=== PATIENT | male | born 1935 | race African-American/Black ===

== ENCOUNTER 2019-08-19 19:08 | Emergency (ER) | payer MEDICARE ==
[~2019-08-19] VITALS: Ht 175.3 cm; Wt 63.0 kg
--- NOTE | 2019-08-19 19:17 | Emergency Department Note ---
History of Present Illnes History of Present Illness Chief Complaint: abdominal pain History of Present Illness This is a 84 year old male, with a history of hypertension, lipidemia, remote prostate cancer, pacemaker placement who is brought in by his daughter for evaluation of epigastric pain that is intermittent past month patient states that the pain is symptoms of burning pain that comes and goes and he is unclear if he makes the pain better or worse. He has been taking Pepto dismal daily for the last few days, to see if that would help this pain. He has no known history of acid reflux. On the Pepto-Bismol did not make any difference in his symptoms. He denies any nausea, vomiting, or diarrhea. Suspect bowel movement was today, which she describes as normal. Patient denies any dysuria, frequency, urgency, fever, upper respiratory symptoms, cough, or shortness of breath. He has no history of peptic ulcer disease. 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 Onset (how long ago): week(s) (2) Location: upper abdomen Quality: sharp, burning Radiation: Reports non-radiation Severity: moderate Onset quality: sudden Duration (how long): week(s) (2) Timing of current episode: intermittent Progression: waxing and waning Chronicity: new Context: Denies recent illness, Denies recent surgery, Denies recent immobilization, Denies recent travel, Denies trauma/injury Relieving factors: none Exacerbating factors: none Associated symptoms: Denies chest pain, Denies fever/chills, Denies loss of appetite, Denies nausea/vomiting, Denies shortness of breath, Denies weakness Treatments prior to arrival: other (pepto Bismol, once daily) Risk factors: age Past Medical/Family History Physician Review I have reviewed the patient's past medical and family history. Any updates have been documented here. Past Medical History Recent Fever: No Clinical Suspicion of Infectio: No New/Unexplained Change in Ment: No Past Medical History: Hypertension, Cancer (Prostate in @ 2009, treated surgically;), Hyperlipedemia Past Surgical History: Hernia Repair (with him about the degree of low blood sugar of the lower she is just not related. Left lower feels sweaty) Other Surgery: Prostatectomy Social History Smoking Cessation: Never Smoker Alcohol Use: None Any Illegal Drug Use: No TB Exposure/Symptoms: No Physically hurt or threatened: No Family History Family history of heart diseas: No Other Any Pre-Existing Lines (PICC,: No Is patient up to date on immun: No Review of Systems Review of Systems Constitutional: Denies chills EENTM: Reports no symptoms Cardiovascular: Denies chest pain, Denies edema, Denies palpitations Respiratory: Denies cough, Denies excessive phlegm production, Denies pain on inspiration, Denies dyspnea on exertion Gastrointestinal: Reports abdominal pain (epigastric); Denies diarrhea, Denies nausea, Denies vomiting Genitourinary: Reports no symptoms Musculoskeletal: Reports no symptoms Integumentary: Reports no symptoms; Denies change in hair/nails, Denies rash Neurological: Reports no symptoms Psychological: Reports no symptoms Endocrine: Reports no symptoms Review of other systems: All other systems negative Physical Exam Related Data Allergies: Coded Allergies: No Known Allergies (Unverified , 08/19/19) Vital signs reviewed: Yes Physical Exam CONSTITUTIONAL Constitutional: Present well-developed, Present well-nourished, Present other ( well-appearing, looks much younger than his stated age.) HENT HENT: Present normocephalic, Present atraumatic, Present oropharynx clear/moist, Present nose normal HENT L/R: Present left ext ear normal, Present right ext ear normal EYES Eyes: Reports PERRL, Reports conjunctivae normal NECK Neck: Present ROM normal PULMONARY Pulmonary: Present effort normal, Present breath sounds normal CARDIOVASCULAR Cardiovascular: Present regular rhythm, Present heart sounds normal, Present capillary refill normal, Present normal rate GASTROINTESTINAL Abdominal: Present soft, Present bowel sounds normal, Present tender (mild ep igastric ttp); Absent guarding GENITOURINARY Genitourinary: Present exam deferred SKIN Skin: Present warm, Present dry; Absent erythema MUSCULOSKELETAL Musculoskeletal: Present ROM normal; Absent edema NEUROLOGICAL Neurological: Present alert, Present oriented x 3, Present no gross motor or sensory deficits PSYCHOLOGICAL Psychological: Present mood/affect normal, Present judgement normal Results Laboratory Laboratory CBC - nl except for WBC = 3.8; UA - negative; Cardiacs - normal BMP - nl, except for K+ = 5; Hepatic Profile - nl except federico = 122, AST = 45; Lab results reviewed: Yes Imaging Imaging results reviewed: Yes Impressions Procedure: HOPD/CT ABD/PEL WO CONTRAST-HOPD Exam Date: 08/19/19 Exam Time: 2134 REPORT STATUS: Signed EXAM: CT Abdomen and Pelvis WITHOUT contrast INDICATION: ^upper abdominal pain ^[id number] ^2134 COMPARISON: None. TECHNIQUE: Abdomen and pelvis were scanned utilizing a multidetector helical scanner from the lung base to the pubic symphysis without administration of IV contrast. Absence of intravenous contrast decreases sensitivity for detection of focal lesions and vascular pathology. Coronal and sagittal reformations were obtained. Stone protocol is performed. IV CONTRAST: None ORAL CONTRAST: None COMPLICATIONS: None RADIATION DOSE: Total DLP: 297 mGy*cm Estimated effective dose: (DLP x 0.015 x size factor) mSv CTDIvol has been reviewed. It is below the limits set by the Radiation Protocol Committee (RPC). Dose modulation, iterative reconstruction, and/or weight based adjustment of the mA/kV was utilized to reduce the radiation dose to as low as reasonably achievable. FINDINGS: LINES and TUBES: None. LOWER THORAX: Unremarkable HEPATOBILIARY: No focal hepatic lesions. No biliary ductal dilation. GALLBLADDER: Contracted and contains gallstones. No wall thickening. SPLEEN: No splenomegaly. PANCREAS: No focal masses or ductal dilatation. ADRENALS: No adrenal nodules KIDNEYS/URETERS: No hydronephrosis. 3.5 cm right renal lower pole cyst. No stones. GI TRACT: No abnormal distention, wall thickening, or evidence of bowel obstruction. Appendix is not distinctly identified. PELVIC ORGANS/BLADDER: The prostate gland is surgically absent. The urinary bladder is unremarkable. LYMPH NODES: No lymphadenopathy. VESSELS: Scattered atherosclerotic disease. PERITONEUM / RETROPERITONEUM: No free air or fluid. BONES: No acute osseous abnormality. Lumbar degenerative change. SOFT TISSUES: No acute abnormality. IMPRESSION: Limited study due to lack of contrast enhancement. No gross acute abdominal or pelvic abnormality is identified. Signed by: Meron Partida MD on 08/19/2019 10:00 PM Dictated By: MERON PARTIDA MD 99 Transcribed By: ALYSE on 08/19/192199 COPY TO: JUSTUS CORTÉS MD~ Diagnostics Tests Diagnostic test(s) reviewed: Yes Procedures 12 Lead ECG Interpretation ECG Interpretation : ECG: ECG 1 Skidway Worker: Interpreted by ED physician Date: Aug 19, 2019 Time: 21:36 Prior ECG tracings: not available for review Rhythm: paced Rate: normal BPM: 61 QRS axis: normal ST segments normal: Yes T waves normal: Yes Pacin% capture Clinical Impression: abnormal ECG (paced rhythm) Assessment & Plan Medical Decision Making MDM Recommend a BLAND diet, avoiding Fried, Fatty, Fast and Spicy foods. Try not to eat anything for 3 hours, prior to laying down for bed at night. Stop taking the Pepto Bismol. Take the Famotidine, as discussed. Follow-up with your PCP, with all results from this ER visit, if symptoms persist, despite dietary changes and taking the Pepcid, as further diagnostic testing may be indicated.* Assessment & Plan Final Impression: (1) Epigastric abdominal pain (2) Gastritis (3) GERD (gastroesophageal reflux disease) (4) Hypertension (5) Hyperlipidemia Depart Disposition: HOME, SELF-group home Meds Active Scripts Famotidine (FAMOTIDINE) 20 Mg Tab, 1 TAB PO BID for 14 Days, #44 TAB 0 Refills Prov:JUSTUS CORTÉS MD 08/19/19 JUSTUS CORTÉS MD Aug 19, 2019 19:17
[2019-08-19] MEDS ORDERED: FAMOTIDINE 20 MG/2 ML VIAL IV STA (20:49)
--- NOTE | 2019-08-19 22:03 | Diagnostic Imaging Report ---
EXAM: CT Abdomen and Pelvis WITHOUT contrast INDICATION: ^upper abdominal pain ^[id number] ^2134 COMPARISON: None. TECHNIQUE: Abdomen and pelvis were scanned utilizing a multidetector helical scanner from the lung base to the pubic symphysis without administration of IV contrast. Absence of intravenous contrast decreases sensitivity for detection of focal lesions and vascular pathology. Coronal and sagittal reformations were obtained. Stone protocol is performed. IV CONTRAST: None ORAL CONTRAST: None COMPLICATIONS: None RADIATION DOSE: Total DLP: 297 mGy*cm Estimated effective dose: (DLP x 0.015 x size factor) mSv CTDIvol has been reviewed. It is below the limits set by the Radiation Protocol Committee (RPC). Dose modulation, iterative reconstruction, and/or weight based adjustment of the mA/kV was utilized to reduce the radiation dose to as low as reasonably achievable. FINDINGS: LINES and TUBES: None. LOWER THORAX: Unremarkable HEPATOBILIARY: No focal hepatic lesions. No biliary ductal dilation. GALLBLADDER: Contracted and contains gallstones. No wall thickening. SPLEEN: No splenomegaly. PANCREAS: No focal masses or ductal dilatation. ADRENALS: No adrenal nodules KIDNEYS/URETERS: No hydronephrosis. 3.5 cm right renal lower pole cyst. No stones. GI TRACT: No abnormal distention, wall thickening, or evidence of bowel obstruction. Appendix is not distinctly identified. PELVIC ORGANS/BLADDER: The prostate gland is surgically absent. The urinary bladder is unremarkable. LYMPH NODES: No lymphadenopathy. VESSELS: Scattered atherosclerotic disease. PERITONEUM / RETROPERITONEUM: No free air or fluid. BONES: No acute osseous abnormality. Lumbar degenerative change. SOFT TISSUES: No acute abnormality. IMPRESSION: Limited study due to lack of contrast enhancement. No gross acute abdominal or pelvic abnormality is identified. Signed by: Elvin Escudero MD on 08/19/2019 10:00 PM
[2019-08-19] MEDS ORDERED: FAMOTIDINE20 MG PO (23:12)
== END 2019-08-19 23:25 | disposition home or self-care (01) ==
LOC: FSED 19:08
DX: R10.13 Epigastric pain (principal); K29.70 Gastritis, unspecified, without bleeding; K21.9 Gastro-esophageal reflux disease without esophagitis; I10 Essential (primary) hypertension; E78.5 Hyperlipidemia, unspecified
CPT/HCPCS: 74176; 80053; 81003; 82553; 84484; 85025; 93005; 99284